=== PATIENT | female | born 1955 | race Caucasian/White ===

== ENCOUNTER 2018-03-20 14:44 | Outpatient (CLI) | payer OTHER, SELFPAY ==
[2018-03-20 16:24] LABS: Abs Immature Grans 0.01 k/cumm (0.0-0.09); Absolute Basophil Count 0.04 k/cumm (0.0-0.2); Absolute Eosinophil Count 0.12 k/cumm (0.0-0.7); Absolute Lymphocyte Count 1.14 k/cumm (1.2-3.4); Absolute Monocyte Count 0.69 k/cumm (0.11-0.7); Absolute Neutrophil Count 1.89 k/cumm (1.2-6.7); Eosinophils % 3.1; HCT 34.2 % (36.0-46.0); HGB 11.4 g/dL (12.0-15.5); Immature Grans % 0.3; Lymphocytes % 29.3; Mean Corp. HGB Concentration 33.3 g/dL (32.0-36.0); Mean Corpuscular Hemoglobin 29.8 pg (27.0-33.0); Mean Corpuscular Volume 89.3 fL (80-95); Mean Platelet Volume 8.8 fL (8.0-11.0); Monocytes % 17.7; Neutrophils % 48.6; Platelet Count 236 x1000/uL (130-400); RBC 3.83 m/cumm (4.00-5.20); RBC Distribution Width 17.7 % (11.7-14.6); White Blood Cell Count 3.89 k/cumm (4.4-10.8)
== END 2018-03-20 14:45 ==
PROVIDERS: PCP Family Medicine Adult Medicine; Visit Provider Radiology Radiation Oncology
DX: C54.1 Malignant neoplasm of endometrium (principal)
CPT/HCPCS: 36415; 85025

== ENCOUNTER 2018-03-29 14:13 | Outpatient (CLI) | payer OTHER, SELFPAY ==
[2018-03-29 14:44] LABS: CREATININE 0.89 mg/dL (0.55-1.02)
[2018-03-29 15:23] LABS: Abs Immature Grans 0.01 k/cumm (0.0-0.09); Absolute Basophil Count 0.05 k/cumm (0.0-0.2); Absolute Eosinophil Count 0.17 k/cumm (0.0-0.7); Absolute Lymphocyte Count 0.69 k/cumm (1.2-3.4); Absolute Neutrophil Count 2.89 k/cumm (1.2-6.7); Basophils % 1.1; Eosinophils % 3.7; HCT 34.4 % (36.0-46.0); HGB 11.4 g/dL (12.0-15.5); Immature Grans % 0.2; Mean Corp. HGB Concentration 33.1 g/dL (32.0-36.0); Mean Corpuscular Hemoglobin 29.6 pg (27.0-33.0); Mean Corpuscular Volume 89.4 fL (80-95); Mean Platelet Volume 9.1 fL (8.0-11.0); Monocytes % 17.4; Neutrophils % 62.6; Platelet Count 229 x1000/uL (130-400); RBC 3.85 m/cumm (4.00-5.20); RBC Distribution Width 17.6 % (11.7-14.6); White Blood Cell Count 4.61 k/cumm (4.4-10.8)
== END 2018-03-29 14:14 ==
PROVIDERS: PCP Family Medicine Adult Medicine; Visit Provider Radiology Radiation Oncology
DX: C64.1 Malignant neoplasm of right kidney, except renal pelvis (principal)
CPT/HCPCS: 36415; 82565; 85025